=== PATIENT | female | born 2000 | race Caucasian/White ===

== ENCOUNTER 2023-01-26 14:17 | Emergency (ER) | payer OTHER ==
[~2023-01-26] VITALS: Ht 157.5 cm; Wt 61.4 kg
[2023-01-26 16:08] VITALS: O2SAT 100
[2023-01-26] MEDS ORDERED: TYLENOL325 MG PO (17:18)
[2023-01-26] MEDS ORDERED: IBUPROFEN200 MG PO (17:18)
== END 2023-01-26 17:25 | disposition home or self-care (01) ==
LOC: FSED 14:28
DX: R10.31 Right lower quadrant pain (principal); R11.0 Nausea
CPT/HCPCS: 74176; 80048; 80076; 81003; 81025; 85025; 99284